=== PATIENT | female | born 1980 | race Caucasian/White ===

== ENCOUNTER 2022-01-14 06:35 | Day surgery (SDC) | payer SELFPAY ==
[2022-01-14 06:58] VITALS: BMI 31.7
[2022-01-14] MEDS ORDERED: LIDOCAINE HCL 1%, 10 MG/ML (20ML VIAL) ONE ×3 (07:43→09:57)
[2022-01-14] MEDS ORDERED: BACITRACIN 15 GM TUBE TOPICAL OINTMENT ONE (07:43)
[2022-01-14] MEDS ORDERED: EPINEPHrine/PF 1 MG/1 ML (1:1,000) AMPULE ONE (07:43)
[2022-01-14] MEDS ORDERED: MIDAZOLAM HCL 2 MG/2 ML SINGLE DOSE VIAL ONE (08:42)
[2022-01-14] MEDS ORDERED: PROPOFOL 20 ML ONE (08:42)
[2022-01-14] MEDS ORDERED: DEXAMETHASONE SOD PHOSPHATE 4 MG/1 ML VIAL ONE (08:42)
[2022-01-14] MEDS ORDERED: LIDOCAINE HCL/PF 2% SDV 5ML VIAL ONE (08:43)
[2022-01-14] MEDS ORDERED: ROCURONIUM BROMIDE 50 MG/5 ML SYRINGE ONE ×2 (08:43→11:40)
[2022-01-14] MEDS ORDERED: SEVOFLURANE 250 ML BTL ONE (08:43)
[2022-01-14] MEDS ORDERED: ONDANSETRON 4 MG/2 ML VIAL ONE ×2 (08:43→13:43)
[2022-01-14] MEDS ORDERED: ceFAZolin SODIUM 1 GM VIAL ONE (09:53)
[2022-01-14] MEDS ORDERED: KETOROLAC TROMETHAMINE 30 MG/1 ML VIAL ONE (11:56)
[2022-01-14] MEDS ORDERED: NEOSTIGMINE METHYLSULFATE 0.5 MG/1 ML - 10 ML MDV ONE (12:24)
[2022-01-14] MEDS ORDERED: GLYCOPYRROLATE 0.2 MG/1 ML VIAL ONE (12:24)
[2022-01-14] MEDS ORDERED: ONDANSETRON 4 MG/2 ML VIAL IVPUSH PRN (13:24)
[2022-01-14] MEDS ORDERED: PROMETHAZINE HCL 25 MG/1 ML VIAL IVPUSH PRN (13:24)
[2022-01-14] MEDS ORDERED: oxyCODONE HCL 5 MG TABLET PO PRN ×2 (13:24)
[2022-01-14] MEDS ORDERED: ACETAMINOPHEN 1000 MG/100 ML BAG IVPB ONE (13:25)
[2022-01-14] MEDS ORDERED: MEPERIDINE HCL 25 MG/ML VIAL IVPUSH ONE (13:25)
[2022-01-14] MEDS ORDERED: LACTATED RINGERS SOLUTION 1,000 ML IV SCH (13:30)
[2022-01-14] MEDS ORDERED: ACETAMINOPHEN INJECTION 100 ML IVPB ONE (13:37)
[2022-01-14 15:24] VITALS: RESP 18
[2022-01-14] MEDS ORDERED: ONDANSETRON 4 MG TABLET PO ONE (16:30)
[2022-01-14] MEDS ORDERED: ONDANSETRON *ODT* 4 MG TABLET ONE (16:30)
[2022-01-14 16:31] VITALS: BP 138/88; PULSE 92; TEMP 97.9
== END 2022-01-14 17:00 | disposition home or self-care (01) ==
LOC: FASU 06:35
PROVIDERS: ATTEND Surgery
CPT/HCPCS: 81025; 94760; Q0162